=== PATIENT | male | born 1975 | race African-American/Black ===

== ENCOUNTER 2019-08-12 02:34 | Emergency (ER) | payer MEDICAID ==
[~2019-08-12] VITALS: Ht 190.5 cm; Wt 111.0 kg
[2019-08-12 02:46] VITALS: BP 137/84
[2019-08-12] MEDS ORDERED: CEFTRIAXONE 250 MG IM ONE (03:00)
[2019-08-12] MEDS ORDERED: AZITHROMYCIN 500 MG TABLET PO ONE (03:00)
[2019-08-12] MEDS ORDERED: CEFTRIAXONE 250 MG ONE (03:07)
[2019-08-12] MEDS ORDERED: AZITHROMYCIN 250 MG TABLET ONE (03:07)
== END 2019-08-12 03:35 | disposition home or self-care (01) ==
LOC: ED 03:00
DX: A64 Unspecified sexually transmitted disease (principal); R36.9 Urethral discharge, unspecified; Z20.2 Contact with and (suspected) exposure to infections with a predominantly sexual mode of transmission
CPT/HCPCS: 87491; 87591; 96372; 99283; J0696

== ENCOUNTER → 2020-05-22 | Outpatient (CLI) | payer MEDICAID, OTHER ==
[~2020-05-22] MED LIST: GADOTERATE 10 MMOL/20ML SYR ONE
== END | disposition home or self-care (01) ==
LOC: RAD 08:29
PROVIDERS: ATTEND Nurse Practitioner Family
DX: M16.0 Bilateral primary osteoarthritis of hip (principal); M87.850 Other osteonecrosis, pelvis
CPT/HCPCS: 72195; A9575